=== PATIENT | male | born 1955 | race Caucasian/White ===

== ENCOUNTER 2018-12-05 09:18 | Inpatient (IN) ==
[2018-12-05] MEDS ORDERED: CLORAZEPATE 3.75 MG TABLET PO PRN (10:09)
[2018-12-05] MEDS ORDERED: GLUCAGON 1 MG VIAL IM PRN (10:10)
[2018-12-05] MEDS ORDERED: CEFUROXIME INJ 1,500 MG in SYRINGE 1 EACH IV ONE (10:10)
[2018-12-05] MEDS ORDERED: DEXTROSE 50% 25 GM/50 ML VIAL IV PRN (10:10)
[2018-12-05 10:43] LABS: Basophils % 0.6 % (0.0-0.8); Eosinophils # 0.1 10*3/uL (0.0-0.87); Eosinophils % 1.4 % (0.00-10.9); Hematocrit 46.9 VOL% (42.0-52.0); Hemoglobin 15.8 GM/DL (14.0-18.0); Immature Granulocytes % 0.2 %; Immature Granulocytes Absolute 0.01 #; Lymphocytes # 2.1 10*3/uL (1.4-4.0); Lymphocytes % 32.8 % (21.2-54.2); Mean Corpuscular HGB Conc 33.7 GM/DL (32-36); Mean Corpuscular Hemoglobin 30 PG (27-34); Mean Corpuscular Volume 90.4 FL (87-102); Mean Platelet Volume 11.1 FL (9.6-12.0); Monocytes # 0.7 10*3/uL (0.11-0.8); Monocytes % 10.4 % (1.7-12.7); Neutrophils # 3.5 10*3/uL (1.4-7.4); Neutrophils % 54.6 % (38.7-73.9); Platelet Count 151 T/CUMM (130-400); Red Blood Count 5.19 MC/CUMM (3.8-5.5); Red Cell Distribution Width 11.7 % (9.3-17.3); White Blood Count 6.4 T/CUMM (4-12)
[2018-12-05 11:08] LABS: Alanine Aminotransferase 29 U/L (16-61); Albumin 4.1 G/DL (3.4-5.0); Alkaline Phosphatase 74 U/L (45-117); Aspartate Amino Transferase 14 U/L (0-37); Bilirubin,Total < 0.39 MG/DL (0.2-1.0); Blood Urea Nitrogen 18 MG/DL (7-18); Calcium 9.7 MG/DL (8.5-10.1); Glucose 79 MG/DL (74-106); Potassium 3.9 MMOL/L (3.5-5.1); Sodium 136 MMOL/L (136-145); Total Protein 7.9 G/DL (6.4-8.3)
[2018-12-05 12:06] LABS: ABG Base Excess 0.7 MMOL/L (-2.5-2.5); ABG HCO3 24.6 MMOL/L (20-26); ABG Oxygen Saturation 96.8 % (95-100); ABG PCO2 37.3 MM HG (35-48); ABG PH 7.437 (7.35-7.45); ABG PO2 84.5 MM HG (80-95); ABG TCO2 25.7 MMOL/L (23-27); Allen Test Positive; Pt O2 Delivery Device Room Air
[2018-12-05] MEDS ORDERED: ZALEPLON 5 MG CAPSULE PO PRN (14:00)
[2018-12-05] MEDS: CHLORHEXIDINE 4% SOLN 118 ML BOTTLE TOP SCH ×2 (14:19→22:01)
[2018-12-05] MEDS: SODIUM CHLORIDE 0.9% 1,000 ML IV SCH (17:39)
[2018-12-05] MEDS: CHLORHEXIDINE 0.12% ORAL RINSE 60 ML BOTTLE SWISH/SPIT SCH (21:56)
[2018-12-06] MEDS ORDERED: PAPAVERINE 60 MG/2 ML VIAL ONE ×2 (04:43→08:40)
[2018-12-06] MEDS: CHLORHEXIDINE 4% SOLN 118 ML BOTTLE TOP SCH ×2 (04:44→09:05)
[2018-12-06] MEDS ORDERED: VANCOMYCIN 1,000 MG VIAL ONE (04:44)
[2018-12-06] MEDS: LISINOPRIL 20 MG TABLET PO SCH ×3 (05:38→09:06)
[2018-12-06] MEDS ORDERED: SUFentanil 250 MCG/5 ML AMP ONE (05:55)
[2018-12-06] MEDS ORDERED: MIDAZOLAM 10 MG/2 ML VIAL ONE (05:55)
[2018-12-06] MEDS ORDERED: HEPARIN/NACL 0.9% 2 UNITS/ML 500 ML IV ONE (05:56)
[2018-12-06] MEDS ORDERED: PHENYLEPHRINE DRIP 20 MG/250 ML PREMIX IV ONE (05:56)
[2018-12-06] MEDS ORDERED: AMINOCAPROIC ACID 5,000 MG/20 ML VIAL IV ONE (05:57)
[2018-12-06] MEDS ORDERED: NITROGLYCERIN DRIP 50 MG/250 ML BOTTLE IV ONE (05:57)
[2018-12-06] MEDS ORDERED: FAMOTIDINE 20 MG TABLET PO ONE (06:00)
[2018-12-06] MEDS ORDERED: DIAZEPAM 5 MG TABLET PO ONE (06:00)
[2018-12-06] MEDS ORDERED: CEFUROXIME INJ 1,500 MG in SYRINGE 1 EACH IV ONE (06:00)
[2018-12-06 07:52] LABS: ABG Base Excess -1.1 MMOL/L (-2.5-2.5); ABG HCO3 23.6 MMOL/L (20-26); ABG Oxygen Saturation 99.7 % (95-100); ABG PCO2 40.4 MM HG (35-48); ABG PH 7.381 (7.35-7.45); ABG TCO2 20.7 MMOL/L (23-27); Glucose Heart Surgery 122 MG/DL (74-106); Hematocrit Heart Surgery 42.8 PERCENT (42-52); Hemoglobin Heart Surgery 13.9 G/DL (14.0-18.0); Ionized Calcium Arterial 1.22 MMOL/L (1.21-1.46); PCO2 Patient Temp Arterial 40.4 MMHG; PH Patient Temp Arterial 7.381; Patient Temperature 37 CELCIUS; Sodium Heart/CVR 135 MMOL/L (135-145)
[2018-12-06 08:18] LABS: Apearance,Urine CLEAR (Clear); Bacteria,Urine Occasional /HPF (Few); Bilirubin,Urine Negative (Negative); Blood, Urine Small mg/dL (Negative); Glucose,Urine (UA) Negative (Negative); Ketones,Urine Negative (Negative); Mucus,Urine Occasional /LPF (Occasional); Nitrite,Urine Negative (Negative); Protein,Urine Negative; RBC,Urine 23 /HPF (0-4); Urine Color Yellow (Yellow); Urine Specific Gravity 1.017 (1.001-1.035); Urine Urobilinogen < 2.0 EU/DL (0.2-1.0); WBC,Urine <1 /HPF (0-6)
[2018-12-06] MEDS ORDERED: PHENYLEPHRINE DRIP 40 MG/250 ML PREMIX IV ONE (08:51)
[2018-12-06] MEDS ORDERED: NITROPRUSSIDE 50 MG/2 ML VIAL ONE (08:51)
[2018-12-06] MEDS ORDERED: SODIUM BICARBONATE 50 MEQ/50 ML SYRINGE IV ONE ×2 (08:51→10:35)
[2018-12-06] MEDS ORDERED: CALCIUM CHLORIDE 1,000 MG/10 ML SYRINGE IV ONE (08:51)
[2018-12-06] MEDS ORDERED: POTASSIUM CHLORIDE RIDER 100 ML IV ONE (08:51)
[2018-12-06] MEDS ORDERED: ALBUMIN 5% 12.5 GM/250 ML VIAL IV ONE (08:51)
[2018-12-06] MEDS ORDERED: SIMVASTATIN 40 MG TABLET PO SCH (09:00)
[2018-12-06] MEDS: CHLORHEXIDINE 0.12% ORAL RINSE 60 ML BOTTLE SWISH/SPIT SCH ×2 (09:06→21:36)
[2018-12-06 09:16] LABS: Hematocrit Heart Surgery 31.9 PERCENT (42-52); Hemoglobin Heart Surgery 10.3 G/DL (14.0-18.0); PCO2 Patient Temp Venous 34.9 MM HG; PH Patient Temp Venous 7.441; PO2 Patient Temp Venous 39.6 MM HG; Potassium Heart/CVR 4.4 MMOL/L (3.5-5.1); VBG Base Excess 0.1 MEQ/L (0-4); VBG HCO3 24.3 MEQ/L (24-28); VBG Oxygen Saturation 85.4 %; VBG PCO2 40.3 MMHG (41-51); VBG PH 7.398; VBG PO2 48.7 MMHG (17-40)
[2018-12-06 09:45] LABS: Hematocrit Heart Surgery 34.8 PERCENT (42-52); Hemoglobin Heart Surgery 11.3 G/DL (14.0-18.0); PH Patient Temp Venous 7.472; PO2 Patient Temp Venous 38.7 MM HG; Potassium Heart/CVR 4.2 MMOL/L (3.5-5.1); VBG Base Excess 0.3 MEQ/L (0-4); VBG HCO3 24.5 MEQ/L (24-28); VBG Oxygen Saturation 85.8 %; VBG PH 7.427; VBG PO2 47.6 MMHG (17-40)
[2018-12-06] MEDS ORDERED: DEXTROSE 5% KCL 20 MEQ 20 MEQ/1,000 ML BAG IV ONE (10:35)
[2018-12-06] MEDS ORDERED: MANNITOL 100 GM/500 ML BAG IV ONE (10:35)
[2018-12-06] MEDS ORDERED: PROTAMINE SULFATE 250 MG/25 ML VIAL IV ONE (10:35)
[2018-12-06] MEDS ORDERED: ALBUMIN 25% 25 GM/100 ML VIAL IV ONE (10:35)
[2018-12-06] MEDS ORDERED: FUROSEMIDE 20 MG/2 ML VIAL ONE (10:36)
[2018-12-06] MEDS ORDERED: PHENYLEPHRINE 10 MG/1 ML VIAL IV ONE (10:36)
[2018-12-06] MEDS ORDERED: HEPARIN 10,000 UNIT/10 ML VIAL ONE (10:36)
[2018-12-06] MEDS ORDERED: methylPREDNISolone SOD SUC 1,000 MG/8 ML VIAL ONE (10:36)
[2018-12-06 10:52] LABS: ABG Base Excess -1.2 MMOL/L (-2.5-2.5); ABG HCO3 23.5 MMOL/L (20-26); ABG Oxygen Saturation 99.7 % (95-100); ABG PCO2 38.5 MM HG (35-48); ABG PH 7.393 (7.35-7.45); ABG TCO2 20.5 MMOL/L (23-27); Glucose Heart Surgery 205 MG/DL (74-106); Ionized Calcium Arterial 1.48 MMOL/L (1.21-1.46); PCO2 Patient Temp Arterial 38.5 MMHG; PH Patient Temp Arterial 7.393; Patient Temperature 37 CELCIUS; Potassium Heart/CVR 3.6 MMOL/L (3.5-5.1); Sodium Heart/CVR 136 MMOL/L (135-145)
[2018-12-06] MEDS: SODIUM CHLORIDE 0.9% 1,000 ML IV SCH (11:13)
[2018-12-06] MEDS ORDERED: ePHEDrine 50 MG/ML AMP ONE (11:56)
[2018-12-06] MEDS ORDERED: PHENYLEPHRINE 1 MG/10 ML SYRINGE IV ONE (11:56)
[2018-12-06] MEDS ORDERED: MINERAL OIL/PETROLATUM OPH OINT 3.5 GM TUBE ONE (11:56)
[2018-12-06] MEDS ORDERED: ETOMIDATE 40 MG/20 ML VIAL IV ONE (11:56)
[2018-12-06] MEDS ORDERED: SODIUM CHLORIDE 0.9% 250 ML IV ONE (11:57)
[2018-12-06] MEDS ORDERED: SODIUM CHLORIDE 0.9% 1,000 ML IV ONE (11:57)
[2018-12-06] MEDS ORDERED: ROCURONIUM 100 MG/10 ML VIAL IV ONE (11:57)
[2018-12-06] MEDS ORDERED: LACTATED RINGERS 1,000 ML IV ONE (11:57)
[2018-12-06] MEDS ORDERED: SUCCINYLCHOLINE 200 MG/10 ML VIAL ONE (11:58)
[2018-12-06] MEDS ORDERED: CALCIUM CHLORIDE 1,000 MG/10 ML VIAL IV ONE (11:58)
[2018-12-06] MEDS: LACTATED RINGERS 250 ML IV PRN ×13 (12:00→17:30)
[2018-12-06] MEDS ORDERED: PHENYLEPHRINE DRIP 40 MG/250 ML PREMIX IV PRN (12:01)
[2018-12-06] MEDS ORDERED: VECURONIUM 10 MG VIAL IV PRN ×2 (12:01)
[2018-12-06] MEDS ORDERED: INSULIN REGULAR 100 UNIT/ML IV PRN (12:01)
[2018-12-06] MEDS ORDERED: NITROPRUSSIDE 100 MG in DEXTROSE 5% 250 ML IV PRN (12:01)
[2018-12-06] MEDS ORDERED: INSULIN REGULAR 100 UNIT/ML IV ONE (12:01)
[2018-12-06] MEDS ORDERED: MAGNESIUM SULF RIDER 4 GM in PREMIX 1 EACH IV PRN (12:01)
[2018-12-06] MEDS ORDERED: MORPHINE 4 MG/1 ML VIAL IV PRN (12:01)
[2018-12-06] MEDS ORDERED: ONDANSETRON 4 MG/2 ML VIAL IV PRN (12:01)
[2018-12-06] MEDS ORDERED: CALCIUM CHLORIDE 1,000 MG/10 ML SYRINGE IV PRN (12:01)
[2018-12-06] MEDS ORDERED: DEXTROSE 50% 25 GM/50 ML SYRINGE IV PRN ×2 (12:01)
[2018-12-06] MEDS ORDERED: ACETAMINOPHEN 650 MG SUPP RECTAL PRN (12:01)
[2018-12-06] MEDS ORDERED: MORPHINE 10 MG/1 ML VIAL IV PRN (12:01)
[2018-12-06] MEDS ORDERED: SODIUM CHLORIDE 0.45% 1,000 ML IV SCH ×2 (12:01)
[2018-12-06] MEDS ORDERED: MIDAZOLAM 2 MG/2 ML VIAL IV PRN (12:01)
[2018-12-06] MEDS ORDERED: INSULIN REGULAR DRIP 100 ML IV SCH (12:01)
[2018-12-06] MEDS ORDERED: MIDAZOLAM 10 MG/2 ML VIAL IV PRN (12:01)
[2018-12-06] MEDS ORDERED: MAGNESIUM SULF RIDER 2 GM in PREMIX 1 EACH IV PRN (12:01)
[2018-12-06] MEDS: ALBUMIN 5% 12.5 GM in PREMIX 1 EACH IV PRN ×7 (12:10→19:09)
[2018-12-06 12:40] LABS: Basophils % 0.3 % (0.0-0.8); Eosinophils % 0.4 % (0.00-10.9); Hematocrit 35.1 VOL% (42.0-52.0); Immature Granulocytes % 0.5 %; Immature Granulocytes Absolute 0.05 #; Lymphocytes % 9.1 % (21.2-54.2); Mean Corpuscular HGB Conc 33.3 GM/DL (32-36); Mean Corpuscular Hemoglobin 31 PG (27-34); Mean Corpuscular Volume 92.4 FL (87-102); Mean Platelet Volume 11.1 FL (9.6-12.0); Monocytes # 0.5 10*3/uL (0.11-0.8); Monocytes % 4.7 % (1.7-12.7); Neutrophils # 9.1 10*3/uL (1.4-7.4); Red Cell Distribution Width 11.9 % (9.3-17.3)
[2018-12-06 12:41] LABS: ABG Base Excess -2.6 MMOL/L (-2.5-2.5); ABG HCO3 22.3 MMOL/L (20-26); ABG Oxygen Saturation 98.2 % (95-100); ABG PCO2 44.9 MM HG (35-48); ABG PH 7.328 (7.35-7.45); Glucose Heart Surgery 146 MG/DL (74-106); Hematocrit Heart Surgery 37.9 PERCENT (42-52); Hemoglobin Heart Surgery 12.3 G/DL (14.0-18.0); Potassium Heart/CVR 3.6 MMOL/L (3.5-5.1)
[2018-12-06 12:44] LABS: Hemoglobin 11.7 GM/DL (14.0-18.0); Platelet Count 115 T/CUMM (130-400); White Blood Count 10.7 T/CUMM (4-12)
[2018-12-06] MEDS: POTASSIUM CHLORIDE RIDER 20 MEQ in PREMIX 1 EACH IV PRN ×4 (12:46→20:00)
[2018-12-06 12:52] LABS: INR 1.1; PT Patient Result 12.4 SECS; Partial Thromboplastin Time 27.6 SECS (0-40)
[2018-12-06] MEDS: KETOROLAC 30 MG/1 ML VIAL IV SCH ×2 (13:04→17:05)
[2018-12-06 13:12] LABS: CKMB % 8.3 %
[2018-12-06 13:14] LABS: Troponin I 3.2 NG/ML (0.00-0.045)
[2018-12-06 13:17] LABS: Albumin 3.5 G/DL (3.4-5.0); Bilirubin,Total 0.7 MG/DL (0.2-1.0); Calcium 9.2 MG/DL (8.5-10.1); Osmolality,Calculated 285.1 MOS/KG (273-304); Potassium 3.6 MMOL/L (3.5-5.1); Total Protein 5.9 G/DL (6.4-8.3)
[2018-12-06] MEDS: POTASSIUM CHLORIDE RIDER 10 MEQ in PREMIX 1 EACH IV PRN ×3 (13:41→19:56)
[2018-12-06 13:53] LABS: ABG Base Excess -1.2 MMOL/L (-2.5-2.5); ABG HCO3 23.4 MMOL/L (20-26); ABG Oxygen Saturation 98.7 % (95-100); ABG PCO2 38.7 MM HG (35-48); ABG TCO2 20.9 MMOL/L (23-27); Glucose Heart Surgery 155 MG/DL (74-106); Hematocrit Heart Surgery 35.4 PERCENT (42-52); Hemoglobin Heart Surgery 11.5 G/DL (14.0-18.0); Potassium Heart/CVR 4.1 MMOL/L (3.5-5.1)
[2018-12-06 16:09] LABS: ABG Base Excess -2.2 MMOL/L (-2.5-2.5); ABG HCO3 22.3 MMOL/L (20-26); ABG Oxygen Saturation 97.6 % (95-100); ABG PCO2 37.1 MM HG (35-48); ABG PH 7.397 (7.35-7.45); ABG PO2 116.4 MM HG (80-95); ABG TCO2 23.4 MMOL/L (23-27); Glucose Heart Surgery 185 MG/DL (74-106); Hemoglobin Heart Surgery 10.6 G/DL (14.0-18.0); Potassium Heart/CVR 3.9 MMOL/L (3.5-5.1)
[2018-12-06] MEDS: INSULIN REGULAR 100 UNIT/ML SUBCUT SCH (17:08)
[2018-12-06] MEDS ORDERED: SODIUM CHLORIDE 0.9% 1,000 ML IV PRN (18:38)
[2018-12-06 19:44] LABS: ABG Base Excess -3.6 MMOL/L (-2.5-2.5); ABG HCO3 21.4 MMOL/L (20-26); ABG Oxygen Saturation 98.9 % (95-100); ABG PCO2 39.7 MM HG (35-48); ABG PH 7.346 (7.35-7.45); ABG TCO2 20.1 MMOL/L (23-27); Glucose Heart Surgery 194 MG/DL (74-106); Hematocrit Heart Surgery 28.6 PERCENT (42-52); Hemoglobin Heart Surgery 9.2 G/DL (14.0-18.0); Potassium Heart/CVR 4.3 MMOL/L (3.5-5.1)
[2018-12-06 19:59] LABS: CKMB % 7.4 %; Troponin I 3.39 NG/ML (0.00-0.045)
[2018-12-06] MEDS: CEFUROXIME INJ 1,500 MG in SYRINGE 1 EACH IV SCH (21:36)
[2018-12-06 23:52] LABS: ABG Base Excess -3.6 MMOL/L (-2.5-2.5); ABG HCO3 21.4 MMOL/L (20-26); ABG Oxygen Saturation 97.8 % (95-100); ABG PCO2 37.1 MM HG (35-48); ABG PH 7.367 (7.35-7.45); ABG PO2 94.8 MM HG (80-95); ABG TCO2 19.6 MMOL/L (23-27); Glucose Heart Surgery 181 MG/DL (74-106); Hematocrit Heart Surgery 28.3 PERCENT (42-52); Hemoglobin Heart Surgery 9.1 G/DL (14.0-18.0); Potassium Heart/CVR 4.3 MMOL/L (3.5-5.1)
[2018-12-07] MEDS ORDERED: FUROSEMIDE 40 MG/4 ML VIAL IV ONE
[2018-12-07] MEDS: INSULIN REGULAR 100 UNIT/ML SUBCUT SCH ×2 (00:20→05:17)
[2018-12-07] MEDS: KETOROLAC 30 MG/1 ML VIAL IV SCH ×5 (00:20→23:35)
[2018-12-07] MEDS: POTASSIUM CHLORIDE RIDER 20 MEQ in PREMIX 1 EACH IV PRN ×3 (00:30→05:18)
[2018-12-07] MEDS: LACTATED RINGERS 250 ML IV PRN ×3 (01:18→08:07)
[2018-12-07 03:33] LABS: ABG Base Excess -2.5 MMOL/L (-2.5-2.5); ABG HCO3 22.3 MMOL/L (20-26); ABG Oxygen Saturation 97.7 % (95-100); ABG PCO2 37.5 MM HG (35-48); ABG PO2 96.8 MM HG (80-95); ABG TCO2 20.2 MMOL/L (23-27); Glucose Heart Surgery 163 MG/DL (74-106); Hemoglobin Heart Surgery 10.4 G/DL (14.0-18.0); Potassium Heart/CVR 4.1 MMOL/L (3.5-5.1)
[2018-12-07 03:58] LABS: Basophils % 0.1 % (0.0-0.8); Hematocrit 29.5 VOL% (42.0-52.0); Hemoglobin 9.6 GM/DL (14.0-18.0); Immature Granulocytes % 0.4 %; Immature Granulocytes Absolute 0.05 #; Lymphocytes # 0.7 10*3/uL (1.4-4.0); Lymphocytes % 6.1 % (21.2-54.2); Mean Corpuscular HGB Conc 32.5 GM/DL (32-36); Mean Corpuscular Hemoglobin 30 PG (27-34); Mean Corpuscular Volume 91.6 FL (87-102); Mean Platelet Volume 11.6 FL (9.6-12.0); Monocytes % 8.9 % (1.7-12.7); Neutrophils # 9.4 10*3/uL (1.4-7.4); Neutrophils % 84.5 % (38.7-73.9); Red Blood Count 3.22 MC/CUMM (3.8-5.5); Red Cell Distribution Width 12.9 % (9.3-17.3); White Blood Count 11.2 T/CUMM (4-12)
[2018-12-07 04:02] LABS: Bilirubin,Direct 0.2 MG/DL (0.0-0.20); Bilirubin,Total 0.8 MG/DL (0.2-1.0); Calcium 8.7 MG/DL (8.5-10.1); Osmolality,Calculated 282.5 MOS/KG (273-304); Potassium 4.1 MMOL/L (3.5-5.1); Total Protein 6.4 G/DL (6.4-8.3)
[2018-12-07 04:04] LABS: CKMB % 7.2 %
[2018-12-07 04:05] LABS: Platelet Count 77 T/CUMM (130-400)
[2018-12-07 04:06] LABS: Troponin I 5.02 NG/ML (0.00-0.045)
[2018-12-07 05:09] LABS: ABG Base Excess -1.9 MMOL/L (-2.5-2.5); ABG HCO3 22.8 MMOL/L (20-26); ABG Oxygen Saturation 98.1 % (95-100); ABG PCO2 37.2 MM HG (35-48); ABG PH 7.393 (7.35-7.45); ABG PO2 99.2 MM HG (80-95); ABG TCO2 20.6 MMOL/L (23-27); Glucose Heart Surgery 150 MG/DL (74-106); Hematocrit Heart Surgery 31.2 PERCENT (42-52); Hemoglobin Heart Surgery 10.1 G/DL (14.0-18.0); Potassium Heart/CVR 4.2 MMOL/L (3.5-5.1)
[2018-12-07 07:17] LABS: ABG Base Excess -0.6 MMOL/L (-2.5-2.5); ABG HCO3 23.5 MMOL/L (20-26); ABG Oxygen Saturation 96.1 % (95-100); ABG PCO2 36.4 MM HG (35-48); ABG PH 7.427 (7.35-7.45); ABG PO2 87.9 MM HG (80-95); ABG TCO2 24.6 MMOL/L (23-27); Glucose Heart Surgery 145 MG/DL (74-106); Hemoglobin Heart Surgery 10.4 G/DL (14.0-18.0); Potassium Heart/CVR 4.3 MMOL/L (3.5-5.1)
[2018-12-07] MEDS: ALBUMIN 5% 12.5 GM in PREMIX 1 EACH IV PRN ×2 (07:34→07:52)
[2018-12-07] MEDS: CEFUROXIME INJ 1,500 MG in SYRINGE 1 EACH IV SCH (07:41)
[2018-12-07] MEDS: CHLORHEXIDINE 0.12% ORAL RINSE 60 ML BOTTLE SWISH/SPIT SCH ×3 (08:06→21:35)
[2018-12-07] MEDS ORDERED: GLUCAGON 1 MG VIAL IM PRN ×2 (11:13)
[2018-12-07] MEDS ORDERED: ZALEPLON 5 MG CAPSULE PO PRN (11:13)
[2018-12-07] MEDS ORDERED: MAGNESIUM SULF RIDER 2 GM in PREMIX 1 EACH IV PRN (11:13)
[2018-12-07] MEDS ORDERED: DEXTROSE 50% 25 GM/50 ML SYRINGE IV PRN ×2 (11:13)
[2018-12-07] MEDS ORDERED: ONDANSETRON 4 MG/2 ML VIAL IV PRN (11:13)
[2018-12-07] MEDS ORDERED: NITROGLYCERIN SL 0.4 MG TABLET SL PRN (11:13)
[2018-12-07] MEDS ORDERED: ACETAMINOPHEN 325 MG TABLET PO PRN (11:13)
[2018-12-07] MEDS ORDERED: MAGNESIUM HYDROXIDE SUSP 30 ML UDCUP PO PRN (11:13)
[2018-12-07] MEDS ORDERED: ALUMINUM/MAGNES/SIMETH MAX STR 30 ML UDCUP PO PRN (11:13)
[2018-12-07] MEDS ORDERED: MAGNESIUM SULF RIDER 4 GM in PREMIX 1 EACH IV PRN (11:13)
[2018-12-07] MEDS ORDERED: POTASSIUM CHLORIDE 20 MEQ TABLET PO PRN (11:13)
[2018-12-07] MEDS ORDERED: SODIUM CHLOR 0.45% KCL 20 MEQ 20 MEQ/1,000 ML BAG IV SCH (11:13)
[2018-12-07] MEDS: DOCUSATE SODIUM 100 MG CAPSULE PO SCH (12:21)
[2018-12-07] MEDS: SIMVASTATIN 40 MG TABLET PO SCH (12:21)
[2018-12-07] MEDS: FERROUS SULFATE 325 MG TABLET PO SCH (12:22)
[2018-12-07] MEDS: ASPIRIN CHEW 81 MG TABLET PO SCH (12:22)
[2018-12-07] MEDS: PANTOPRAZOLE 40 MG TABLET PO SCH (13:00)
[2018-12-07] MEDS: LISINOPRIL/HCTZ 20-25 MG TABLET PO SCH (13:00)
[2018-12-07] MEDS: oxyCODONE/ACETAMINOPHEN 5-325 MG TABLET PO PRN (18:12)
[2018-12-08] MEDS: oxyCODONE/ACETAMINOPHEN 5-325 MG TABLET PO PRN ×3 (02:23→22:18)
[2018-12-08 05:08] LABS: Basophils % 0.1 % (0.0-0.8); Hemoglobin 9.7 GM/DL (14.0-18.0); Immature Granulocytes % 0.7 %; Immature Granulocytes Absolute 0.09 #; Lymphocytes # 1.3 10*3/uL (1.4-4.0); Lymphocytes % 9.1 % (21.2-54.2); Mean Corpuscular HGB Conc 32.3 GM/DL (32-36); Mean Corpuscular Hemoglobin 30 PG (27-34); Mean Corpuscular Volume 93.2 FL (87-102); Mean Platelet Volume 12.5 FL (9.6-12.0); Monocytes # 1.2 10*3/uL (0.11-0.8); Monocytes % 8.5 % (1.7-12.7); Neutrophils # 11.2 10*3/uL (1.4-7.4); Neutrophils % 81.6 % (38.7-73.9); Platelet Count 72 T/CUMM (130-400); Red Blood Count 3.22 MC/CUMM (3.8-5.5); White Blood Count 13.7 T/CUMM (4-12)
[2018-12-08 05:27] LABS: Albumin 3.8 G/DL (3.4-5.0); Bilirubin,Direct 0.11 MG/DL (0.0-0.20); Bilirubin,Indirect 0.4 MG/DL (0.0-1.0); Bilirubin,Total 0.5 MG/DL (0.2-1.0); CKMB % 1.6 %; Calcium 8.9 MG/DL (8.5-10.1); Osmolality,Calculated 280.7 MOS/KG (273-304); Potassium 4.4 MMOL/L (3.5-5.1); Total Protein 6.6 G/DL (6.4-8.3)
[2018-12-08 05:28] LABS: Troponin I 4.38 NG/ML (0.00-0.045)
[2018-12-08] MEDS ORDERED: FUROSEMIDE 40 MG/4 ML VIAL IV ONE (06:00)
[2018-12-08 06:21] LABS: Band Neutrophils 3 % (0-10); Lymphocytes 9 % (20-55); Platelet Estimate Decreased; Segmented Neutrophils 82 % (50-85); Total Cells Counted 100
[2018-12-08] MEDS: KETOROLAC 30 MG/1 ML VIAL IV SCH ×3 (07:10→18:25)
[2018-12-08] MEDS: PANTOPRAZOLE 40 MG TABLET PO SCH (08:30)
[2018-12-08] MEDS: DOCUSATE SODIUM 100 MG CAPSULE PO SCH (08:30)
[2018-12-08] MEDS: LISINOPRIL/HCTZ 20-25 MG TABLET PO SCH (08:30)
[2018-12-08] MEDS: ASPIRIN CHEW 81 MG TABLET PO SCH (08:31)
[2018-12-08] MEDS: FERROUS SULFATE 325 MG TABLET PO SCH (08:31)
[2018-12-08] MEDS: CHLORHEXIDINE 0.12% ORAL RINSE 60 ML BOTTLE SWISH/SPIT SCH ×2 (08:31→22:14)
[2018-12-08] MEDS: SIMVASTATIN 40 MG TABLET PO SCH (11:53)
[2018-12-09] MEDS: KETOROLAC 30 MG/1 ML VIAL IV SCH ×3 (00:48→12:35)
[2018-12-09 05:36] LABS: Basophils % 0.2 % (0.0-0.8); Eosinophils # 0.1 10*3/uL (0.0-0.87); Eosinophils % 0.5 % (0.00-10.9); Hematocrit 29.9 VOL% (42.0-52.0); Hemoglobin 9.8 GM/DL (14.0-18.0); Immature Granulocytes % 0.4 %; Immature Granulocytes Absolute 0.04 #; Lymphocytes # 2.1 10*3/uL (1.4-4.0); Lymphocytes % 22.7 % (21.2-54.2); Mean Corpuscular HGB Conc 32.8 GM/DL (32-36); Mean Corpuscular Hemoglobin 31 PG (27-34); Mean Corpuscular Volume 93.1 FL (87-102); Monocytes # 1.1 10*3/uL (0.11-0.8); Monocytes % 11.4 % (1.7-12.7); Neutrophils # 6.1 10*3/uL (1.4-7.4); Neutrophils % 64.8 % (38.7-73.9); Red Blood Count 3.21 MC/CUMM (3.8-5.5); Red Cell Distribution Width 12.9 % (9.3-17.3); White Blood Count 9.4 T/CUMM (4-12)
[2018-12-09 05:49] LABS: Platelet Count 86 T/CUMM (130-400)
[2018-12-09 05:59] LABS: Alanine Aminotransferase 27 U/L (16-61); Albumin 3.4 G/DL (3.4-5.0); Alkaline Phosphatase 41 U/L (45-117); Aspartate Amino Transferase 36 U/L (0-37); Bilirubin,Indirect 0.7 MG/DL (0.0-1.0); Blood Urea Nitrogen 26 MG/DL (7-18); Calcium 8.9 MG/DL (8.5-10.1); Glucose 102 MG/DL (74-106); Osmolality,Calculated 283.4 MOS/KG (273-304); Potassium 3.9 MMOL/L (3.5-5.1); Sodium 140 MMOL/L (136-145); Total Protein 6.4 G/DL (6.4-8.3)
[2018-12-09 06:01] LABS: Hypochromasia 1+; Platelet Estimate Decreased
[2018-12-09] MEDS: DOCUSATE SODIUM 100 MG CAPSULE PO SCH (09:31)
[2018-12-09] MEDS: FERROUS SULFATE 325 MG TABLET PO SCH (09:31)
[2018-12-09] MEDS: LISINOPRIL/HCTZ 20-25 MG TABLET PO SCH (09:31)
[2018-12-09] MEDS: ASPIRIN CHEW 81 MG TABLET PO SCH (09:31)
[2018-12-09] MEDS: PANTOPRAZOLE 40 MG TABLET PO SCH (09:31)
[2018-12-09] MEDS: CHLORHEXIDINE 0.12% ORAL RINSE 60 ML BOTTLE SWISH/SPIT SCH (09:31)
[2018-12-09] MEDS: SIMVASTATIN 40 MG TABLET PO SCH (09:31)
[2018-12-09 12:32] VITALS: BP 131/69
[2018-12-09] MEDS: oxyCODONE/ACETAMINOPHEN 5-325 MG TABLET PO PRN (13:13)
== END 2018-12-09 14:00 | disposition home health service (06) | DRG 236 ==
LOC: N.4E 09:20 → N.CVR 12-06 07:12 → N.TELES 12-07 11:12